=== PATIENT | female | born 1965 | race Caucasian/White ===

== ENCOUNTER 2017-06-25 09:32 | Inpatient (IN) | payer OTHER ==
[2017-06-25 10:10] VITALS: BMI 33.9
--- NOTE | 2017-06-25 13:41 | HP ---
CIWA Score - CIWA Score Nausea/Vomitin-No Nausea/No Vomiting Muscle Tremors: 4-Moderate,w/Arms Extend Anxiety: 4-Mod. Anxious/Guarded Agitation: 4-Moderately Restless Paroxysmal Sweats: 1-Minimal Palms Moist Orientation: 0-Oriented Tacttile Disturbances: 3-Moderate Itch/Numb/Burn Auditory Disturbances: 0-None Visual Disturbances: 0-None Headache: 1-Very Mild CIWA-Ar Total Score: 17 Admission ROS [facility] Chief Complaint: WITHDRAWAL SX FROM KLONOPIN/XANAX Allergies/Adverse Reactions: Allergies Allergy/AdvReac Type Severity Reaction Status Date / Time fentanyl Allergy Severe Swelling Verified 04/07/15 16:39 ketorolac tromethamine Allergy Severe Hives Verified 06/25/17 12:17 [From Toradol] morphine Allergy Severe Swelling Verified 04/07/15 16:39 penicillin G Allergy Severe Hives Verified 04/07/15 16:39 tramadol Allergy Severe Hives Verified 06/25/17 12:17 History of Present Illness: 52 Y/O H/FEMALE WITH A HX OF KLONOPIN AND XANAX DEPENDENCE SEEKING DETOX TX. PT IS ON S.T.A.R.T.-MMTP. ON METHADONE 80 MG DAILY. LAST DOSED TODAY. Exam Limitations: No Limitations - Ebola screening Have you traveled outside of the country in the last 21 days: No Have you had contact with anyone from an Ebola affected area: No Have you been sick,other than usual withdrawal symptoms: No Do you have a fever: No - Review of Systems Constitutional: Chills, Loss of Appetite, Night Sweats, Changes in sleep (TAKES AMBIEN), Unintentional Wgt. Loss EENT: reports: Blurred Vision, Tearing, Nose Congestion, Dental Problems (UPPER DENTURE) Respiratory: reports: Shortness of Breath (HX ASTHMA), Wheezing Cardiac: reports: Lightheadedness GI: reports: Constipated, Diarrhea, Nausea, Poor Appetite, Poor Fluid Intake, Vomiting, Abdominal cramping : reports: Burning, Dysuria, Frequency, Incontinence Musculoskeletal: reports: Back Pain, Joint Pain, Muscle Pain, Other (HX SCOLIOSIS SPINE) Integumentary: reports: Bruising, Rash (LEFT LEFT,BACK AND SHOULDER ON/OFF FOR PAST 4 YRS. BIOPSY DONE BUT RECENT TEST RESULT PENDING. ON BENADRYL 50 MG TID PRN.) Neuro: reports: Headache, Seizure ( "ONE TIME IN MY WHOLE LIFE IN 04/10/17"-- HOSPITALIZED X 7 DAYS AT [facility]) Endocrine: reports: No Symptoms Reported Hematology: reports: Anemia ([place] ) Psychiatric: reports: Orientated x3, Anxious, Depressed Other Systems: Reviewed and Negative Patient History - Patient Medical History Hx Anemia: Yes (IN ) Hx Asthma: Yes (Pt is on MDI) Hx Chronic Obstructive Pulmonary Disease (COPD): No Hx Cancer: No Hx Cardiac Disorders: No Hx Congestive Heart Failure: No Hx Hypertension: No Hx Hypercholesterolemia: Yes (RECENTLY ON H/P-NO MED(TO F/U WITH PMD SOON)) Hx Pacemaker: No HX Cerebrovascular Accident: No Hx Seizures: Yes (drug related seizures last 03/30 no meds.) Hx Dementia: No Hx Diabetes: No Hx Gastrointestinal Disorders: No Hx Liver Disease: No Hx Genitourinary Disorders: No Hx Sexually Transmitted Disorders: No Hx Renal Disease (ESRD): No Hx Thyroid Disease: No Hx Human Immunodeficiency Virus (HIV): No (NEGATIVE HX) Hx Hepatitis C: No Hx Depression: Yes (ON MED) Hx Suicide Attempt: Yes (Pt tried to overdose 10 yrs ago;DENIES CURRENT S/I .) Hx Bipolar Disorder: No Hx Schizophrenia: No - Patient Surgical History Past Surgical History: Yes Hx Neurologic Surgery: No Hx Cataract Extraction: No Hx Cardiac Surgery: No Hx Lung Surgery: No Hx Breast Surgery: No Hx Breast Biopsy: No Hx Abdominal Surgery: No Hx Appendectomy: No Hx Cholecystectomy: No Hx Genitourinary Surgery: No Hx Section: Yes (x1) Hx Orthopedic Surgery: Yes (scolosis sx age 13) Other Surgical History: Sx R hip at age 13 yrs Anesthesia Reaction: No - PPD History Previous Implant?: Yes Documented Results: Negative w/o proof Implanted On Prior R Admission?: Yes Date: 04/09/15 PPD to be Administered?: Yes - Reproductive History Patient is a Female of Child Bearing Age (11 -55 yrs old): Yes LMP comment: 10 YRS AGO Patient : No - Smoking Cessation Smoking history: Current every day smoker Have you smoked in the past 12 months: Yes Aproximately how many cigarettes per day: 10 Hx Chewing Tobacco Use: No Initiated information on smoking cessation: Yes 'Breaking Loose' booklet given: 06/25/17 - Substance & Tx. History Hx Alcohol Use: No (DENIES) Hx Substance Use: Yes (KLONOPIN/XANAX) Substance Use Type: Tranquilizers Hx Substance Use Treatment: Yes - Substances Abused KLONOPIN/XANAX Route: Oral Frequency: Daily Amount used: 4MG Age of first use: 43 Date of Last Use: 06/24/17 Family Disease History - Family Disease History Family Disease History: CA: Mother (breast CA) Admission Physical Exam S - Vital Signs Vital Signs: Vital Signs - 24 hr 06/25/17 10:05 Temperature 97.4 F L Pulse Rate 76 Respiratory 20 Rate Blood Pressure 119/75 - Physical General Appearance: Yes: Moderate Distress, Irritable, Anxious HEENTM: Yes: EOMI, Normocephalic, ALEXANDRO, Pharynx Normal Respiratory: Yes: Chest Non-Tender, Lungs Clear, No Respiratory Distress Neck: Yes: Supple, Trachea in good position Breast: Yes: Breast Exam Deferred Cardiology: Yes: Regular Rhythm, Regular Rate, S1, S2 Abdominal: Yes: Normal Bowel Sounds, Non Tender, Protuberent Genitourinary: Yes: Other Back: Yes: Within Normal Limits Musculoskeletal: Yes: full range of Motion, Gait Steady Extremities: Yes: Normal Range of Motion, Non-Tender Neurological: Yes: electronic publishing specialist II-XII NML intact, Fully Oriented, Alert, Motor Strength 5/5 Integumentary: Yes: Dry, Warm, Rash (LEFT LOWER LEG DRY RASH WITH ESCORIATIONS) Lymphatic: Yes: Within Normal Limits - Diagnostic (1) Asthma Status: Chronic Qualifiers: Asthma severity: mild Asthma persistence: intermittent Asthma complication type: uncomplicated Qualified Code(s): J45.20 - Mild intermittent asthma, uncomplicated (2) Methadone maintenance therapy patient Status: Chronic Comment: 180mg last dose today. pending verification. (3) Nicotine dependence Status: Acute Qualifiers: Nicotine product type: cigarettes Substance use status: uncomplicated Qualified Code(s): F17.210 - Nicotine dependence, cigarettes, uncomplicated (4) Skin rash Status: Chronic (5) Sedative, hypnotic or anxiolytic dependence with withdrawal, uncomplicated Status: Acute (6) Drug withdrawal seizure Status: Suspected Qualifiers: Complication of substance-induced condition: with unspecified complication Qualified Code(s): F19.239 - Other psychoactive substance dependence with withdrawal, unspecified; R56.9 - Unspecified convulsions; R56.9 - Unspecified convulsions; R56.9 - Unspecified convulsions; R56.9 - Unspecified convulsions Cleared for Admission [facility] - Detox or Rehab [facility] Level of Care: Medically Managed Detox Regimen/Protocol: Valium [facility] Breath Alcohol Content Breath Alcohol Content: 0 Urine Pregancy Test - Result Urine Test Results: Negative- NO Line Present Urine Drug Screen - Results Drug Screen Negative: No Urine Drug Screen Results: BZO-Benzodiazepines, MTD-Methadone, TCA-Tricyclic Antidepress
[2017-06-25] MEDS ORDERED: LOPERAMIDE HCL 2 MG CAPSULE PO PRN (13:58)
[2017-06-25] MEDS ORDERED: P-EPHED 60MG/TRIPROLIDI 2.5MG TABLET PO PRN (13:58)
[2017-06-25] MEDS ORDERED: NICOTINE POLACRILEX 2 MG GUM BUC PRN (13:58)
[2017-06-25] MEDS ORDERED: MAGNESIUM CITRATE 300 ML BOTTLE PO PRN (13:58)
[2017-06-25] MEDS ORDERED: MAGNESIUM HYDROX 2400MG/30ML ORAL SUSPENSION 30 ML CUP PO PRN (13:58)
[2017-06-25] MEDS ORDERED: MAG HYDROX/AL HYDROX/SIMETH 30 ML UNIT-DOSE CUP PO PRN (13:58)
[2017-06-25] MEDS ORDERED: MENTHOL/PHENOL 1 EACH UD MM PRN (13:58)
[2017-06-25] MEDS ORDERED: guaiFENesin/D-METHORPHAN HB 10 ML UNIT-DOSE CUPS PO PRN (13:58)
[2017-06-25] MEDS ORDERED: diazePAM 5 MG TABLET PO ONE (15:27)
[2017-06-25] MEDS: NICOTINE 14 MG/24 HOURS TOPICAL PATCH TD SCH (16:53)
[2017-06-25 17:19] LABS: URINE APPEARANCE SLCLOUDY; URINE BILIRUBIN NEGATIVE (NEGATIVE); URINE BLOOD NEGATIVE (NEGATIVE); URINE COLOR YELLOW; URINE GLUCOSE (UA) NEGATIVE (NEGATIVE); URINE KETONE NEGATIVE (NEGATIVE); URINE LEUK ESTERASE NEGATIVE (NEGATIVE); URINE NITRITE POSITIVE (NEGATIVE); URINE PROTEIN NEGATIVE (NEGATIVE); URINE UROBILINOGEN NEGATIVE mg/dL (0.2-1.0)
[2017-06-25 17:33] LABS: MCH 30.9 pg (25.7-33.7); MCHC 33.5 g/dl (32.0-36.0); MEAN CELL VOLUME 92.1 fl (80-96); MEAN PLT VOLUME 8.5 fl (7.5-11.1); PLATELET COUNT 291 K/MM3 (134-434); RDW 14.4 % (11.6-15.6)
[2017-06-25 17:44] LABS: URINE MUCUS RARE; URINE RBC <1 /hpf (0-3); URINE WBC 1 /hpf (3-5)
[2017-06-25 17:53] LABS: CALCIUM 8.9 mg/dL (8.5-10.1)
[2017-06-25 17:58] LABS: ALBUMIN 3.7 g/dl (3.4-5.0); ALK PHOS 83 U/L (45-117); ANION GAP 8 (8-16); BILIRUBIN,TOTAL 0.2 mg/dL (0.2-1.0); CO2 28 mmol/L (21-32); CREATININE 0.9 mg/dL (0.55-1.02); GLUCOSE,RANDOM 73 mg/dL (74-106); SGOT/AST 13 U/L (15-37); SGPT/ALT 17 U/L (12-78); TOT PROT 7.3 g/dl (6.4-8.2)
[2017-06-25] MEDS: TRIAMCINOLONE ACET 0.025% OINTMENT 15 GM TUBE TP SCH ×2 (18:11→22:35)
[2017-06-25] MEDS: diphenhydrAMINE HCL 25 MG CAPSULE (FP) PO SCH ×2 (18:12→22:31)
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
[2017-06-25 20:03] LABS: URINE LEUK ESTERASE Negative (NEGATIVE)
[2017-06-25] MEDS ORDERED: diphenhydrAMINE HCL 25 MG CAPSULE (FP) PO SCH (22:00)
[2017-06-25] MEDS: diazePAM 5 MG TABLET PO SCH (22:31)
[2017-06-25] MEDS: ZOLPIDEM TARTRATE 5 MG TABLET PO PRN (22:32)
[2017-06-25] MEDS: THIAMINE HCL 100 MG TABLET (FP) PO SCH (22:33)
[2017-06-26] MEDS ORDERED: diphenhydrAMINE HCL 25 MG CAPSULE (FP) PO ONE (02:40)
[2017-06-26] MEDS: diazePAM 5 MG TABLET PO SCH ×3 (05:09→22:18)
[2017-06-26] MEDS: diphenhydrAMINE HCL 25 MG CAPSULE (FP) PO SCH ×3 (05:09→22:18)
--- NOTE | 2017-06-26 09:34 | PN ---
[facility] CIWA - CIWA Score Nausea/Vomitin Muscle Tremors: 3 Anxiety: 3 Agitation: 3 Paroxysmal Sweats: 3 Orientation: 0-Oriented Tacttile Disturbances: 0-None Auditory Disturbances: 0-None Visual Disturbances: 0-None Headache: 0-None Present CIWA-Ar Total Score: 15 [facility] Progress Note (SOAP) Subjective: nasuea, sweats, interupetd sleep, anxiety, tremors, requesting methadone dose 80mg to be given at this time, feeling uncomfortable. Objective: 06/26/17 09:33 Vital Signs - 8 hr 06/26/17 06/26/17 03:30 06:21 Temperature 97.4 F L Pulse Rate 69 Respiratory 18 18 Rate Blood Pressure 111/76 Laboratory Tests 06/25/17 06/25/17 06/25/17 14:00 14:00 14:00 WBC 5.0 RBC 3.55 L Hgb 11.0 Hct 32.7 MCV 92.1 MCH 30.9 MCHC 33.5 RDW 14.4 Plt Count 291 MPV 8.5 Sodium 140 Potassium 4.2 Chloride 104 Carbon Dioxide 28 Anion Gap 8 BUN 16 Creatinine 0.9 D Creat Clearance w eGFR > 60 Random Glucose 73 L D Calcium 8.9 Total Bilirubin 0.2 AST 13 L ALT 17 Alkaline Phosphatase 83 Total Protein 7.3 Albumin 3.7 Urine Color Urine Appearance Urine pH Ur Specific [place] Urine Protein Urine Glucose (UA) Urine Ketones Urine Blood Urine Nitrite Urine Bilirubin Urine Urobilinogen Ur Leukocyte Esterase Urine WBC (Auto) Urine RBC (Auto) Ur Epithelial Cells Urine Mucus RPR Titer Nonreactive 06/25/17 15:15 WBC RBC Hgb Hct MCV MCH MCHC RDW Plt Count MPV Sodium Potassium Chloride Carbon Dioxide Anion Gap BUN Creatinine Creat Clearance w eGFR Random Glucose Calcium Total Bilirubin AST ALT Alkaline Phosphatase Total Protein Albumin Urine Color Yellow Urine Appearance Slcloudy Urine pH 6.0 Ur Specific [place] 1.012 Urine Protein Negative Urine Glucose (UA) Negative Urine Ketones Negative Urine Blood Negative Urine Nitrite Positive Urine Bilirubin Negative Urine Urobilinogen Negative Ur Leukocyte Esterase Negative Urine WBC (Auto) 1 Urine RBC (Auto) <1 Ur Epithelial Cells Rare Urine Mucus Rare RPR Titer Assessment: 06/26/17 09:33 withdrawal sx - cont detox, fluids, encourage ambualtion, methadone dose verified 80mg ldm 06.25.2017 dose ordred to be given now.
[2017-06-26] MEDS: PRENATAL VITAMINS W/ FOLIC ACID TABLET (FP) PO SCH (10:23)
[2017-06-26] MEDS: METHADONE HCL 40 MG DISPERSABLE TABLET PO SCH (10:23)
[2017-06-26] MEDS: NICOTINE 14 MG/24 HOURS TOPICAL PATCH TD SCH (10:24)
[2017-06-26] MEDS: diazePAM 5 MG TABLET PO PRN ×2 (10:24→17:51)
[2017-06-26] MEDS: TRIAMCINOLONE ACET 0.025% OINTMENT 15 GM TUBE TP SCH ×4 (10:24→22:19)
--- NOTE | 2017-06-26 11:40 | EKG ---
Test Reason : Blood Pressure : / mmHG Vent. Rate : 067 BPM Atrial Rate : 067 BPM P-R Int : 136 ms QRS Dur : 090 ms QT Int : 404 ms P-R-T Axes : 010 015 011 degrees QTc Int : 426 ms NORMAL SINUS RHYTHM NONSPECIFIC T WAVE ABNORMALITY ABNORMAL ECG NO PREVIOUS ECGS AVAILABLE Confirmed by ALBARO DONNELLY, YOHAN ([id number]) on 06/26/2017 11:40:24 AM Referred By: Confirmed By:YOHAN IRVIN MD
[2017-06-26] MEDS: ACETAMINOPHEN 325 MG TABLET (FP) PO PRN (16:58)
[2017-06-26] MEDS: THIAMINE HCL 100 MG TABLET (FP) PO SCH (22:18)
[2017-06-26] MEDS: ZOLPIDEM TARTRATE 5 MG TABLET PO PRN (22:20)
[2017-06-27] MEDS: diazePAM 5 MG TABLET PO PRN ×3 (02:55→18:17)
[2017-06-27] MEDS: METHADONE HCL 40 MG DISPERSABLE TABLET PO SCH (05:16)
[2017-06-27] MEDS: diphenhydrAMINE HCL 25 MG CAPSULE (FP) PO SCH ×3 (05:16→23:09)
[2017-06-27] MEDS ORDERED: diphenhydrAMINE HCL 50 MG CAPSULE PO PRN (10:04)
--- NOTE | 2017-06-27 10:10 | PN ---
S CIWA - CIWA Score Nausea/Vomitin Muscle Tremors: 3 Anxiety: 3 Agitation: 3 Paroxysmal Sweats: 1-Minimal Palms Moist Orientation: 0-Oriented Tacttile Disturbances: 1-Very Mild Itch/Numbness Auditory Disturbances: 1-Very Mild Visual Disturbances: 1-Very Mild Sensitivity Headache: 2-Mild CIWA-Ar Total Score: 18 [facility] Progress Note (SOAP) Subjective: alert,irritable,anxious,interrupted sleep,pain in the body and back,tremor, vaginal discharge itching Objective: 06/27/17 10:07 Vital Signs Temperature 98.1 F 06/27/17 10:04 Pulse Rate 79 06/27/17 10:04 Respiratory Rate 18 06/27/17 10:04 Blood Pressure 115/73 06/27/17 10:04 O2 Sat by Pulse Oximetry (%) Laboratory Last Values WBC 5.0 K/mm3 (4.0-10.0) 06/25/17 14:00 RBC 3.55 M/mm3 (3.60-5.2) L 06/25/17 14:00 Hgb 11.0 GM/dL (10.7-15.3) 06/25/17 14:00 Hct 32.7 % (32.4-45.2) 06/25/17 14:00 MCV 92.1 fl (80-96) 06/25/17 14:00 MCH 30.9 pg (25.7-33.7) 06/25/17 14:00 MCHC 33.5 g/dl (32.0-36.0) 06/25/17 14:00 RDW 14.4 % (11.6-15.6) 06/25/17 14:00 Plt Count 291 K/MM3 (134-434) 06/25/17 14:00 MPV 8.5 fl (7.5-11.1) 06/25/17 14:00 Sodium 140 mmol/L (136-145) 06/25/17 14:00 Potassium 4.2 mmol/L (3.5-5.1) 06/25/17 14:00 Chloride 104 mmol/L (98-107) 06/25/17 14:00 Carbon Dioxide 28 mmol/L (21-32) 06/25/17 14:00 Anion Gap 8 (8-16) 06/25/17 14:00 BUN 16 mg/dL (7-18) 06/25/17 14:00 Creatinine 0.9 mg/dL (0.55-1.02) D 06/25/17 14:00 Creat Clearance w eGFR > 60 (>60) 06/25/17 14:00 Random Glucose 73 mg/dL (74-106) L D 06/25/17 14:00 Calcium 8.9 mg/dL (8.5-10.1) 06/25/17 14:00 Total Bilirubin 0.2 mg/dL (0.2-1.0) 06/25/17 14:00 AST 13 U/L (15-37) L 06/25/17 14:00 ALT 17 U/L (12-78) 06/25/17 14:00 Alkaline Phosphatase 83 U/L (45-117) 06/25/17 14:00 Total Protein 7.3 g/dl (6.4-8.2) 06/25/17 14:00 Albumin 3.7 g/dl (3.4-5.0) 06/25/17 14:00 Urine Color Yellow 06/25/17 15:15 Urine Appearance Slcloudy 06/25/17 15:15 Urine pH 6.0 (5.0-8.0) 06/25/17 15:15 Ur Specific [place] 1.012 (1.001-1.035) 06/25/17 15:15 Urine Protein Negative (NEGATIVE) 06/25/17 15:15 Urine Glucose (UA) Negative (NEGATIVE) 06/25/17 15:15 Urine Ketones Negative (NEGATIVE) 06/25/17 15:15 Urine Blood Negative (NEGATIVE) 06/25/17 15:15 Urine Nitrite Positive (NEGATIVE) 06/25/17 15:15 Urine Bilirubin Negative (NEGATIVE) 06/25/17 15:15 Urine Urobilinogen Negative mg/dL (0.2-1.0) 06/25/17 15:15 Ur Leukocyte Esterase Negative (NEGATIVE) 06/25/17 15:15 Urine WBC (Auto) 1 /hpf (3-5) 06/25/17 15:15 Urine RBC (Auto) <1 /hpf (0-3) 06/25/17 15:15 Ur Epithelial Cells Rare /HPF (FEW) 06/25/17 15:15 Urine Mucus Rare 06/25/17 15:15 RPR Titer Nonreactive (NONREACTIVE) 06/25/17 14:00 Assessment: 06/27/17 10:08 withdrawal symptom Plan: continue detox,cane for ambulation aid,diflucan 100 mgs po one dose
[2017-06-27] MEDS: diazePAM 5 MG TABLET PO SCH ×2 (10:16→22:17)
[2017-06-27] MEDS: PRENATAL VITAMINS W/ FOLIC ACID TABLET (FP) PO SCH (10:16)
[2017-06-27] MEDS: NICOTINE 14 MG/24 HOURS TOPICAL PATCH TD SCH (10:17)
[2017-06-27] MEDS: TRIAMCINOLONE ACET 0.025% OINTMENT 15 GM TUBE TP SCH ×4 (10:17→23:09)
[2017-06-27] MEDS: FLUCONAZOLE 100 MG TABLET (UD) PO SCH (11:26)
[2017-06-27] MEDS: THIAMINE HCL 100 MG TABLET (FP) PO SCH (22:17)
[2017-06-27] MEDS: ZOLPIDEM TARTRATE 5 MG TABLET PO PRN (22:19)
[2017-06-28] MEDS: diazePAM 5 MG TABLET PO PRN ×2 (00:28→05:40)
[2017-06-28] MEDS: ACETAMINOPHEN 325 MG TABLET (FP) PO PRN ×2 (01:54→11:33)
[2017-06-28] MEDS: diphenhydrAMINE HCL 25 MG CAPSULE (FP) PO SCH ×2 (05:38→14:13)
[2017-06-28] MEDS: METHADONE HCL 40 MG DISPERSABLE TABLET PO SCH (05:38)
[2017-06-28] MEDS: PRENATAL VITAMINS W/ FOLIC ACID TABLET (FP) PO SCH (10:23)
[2017-06-28] MEDS: NICOTINE 14 MG/24 HOURS TOPICAL PATCH TD SCH (10:23)
[2017-06-28] MEDS: diazePAM 5 MG TABLET PO SCH ×2 (10:23→22:17)
[2017-06-28] MEDS: TRIAMCINOLONE ACET 0.025% OINTMENT 15 GM TUBE TP SCH ×4 (10:24→22:17)
[2017-06-28] MEDS: FLUCONAZOLE 100 MG TABLET (UD) PO SCH (10:25)
--- NOTE | 2017-06-28 11:10 | PN ---
S Progress Note (SOAP) Subjective: alert,irritable,anxious,interrupted sleep, Objective: 06/28/17 11:09 Vital Signs Temperature 98.2 F 06/28/17 09:45 Pulse Rate 74 06/28/17 09:45 Respiratory Rate 18 06/28/17 09:45 Blood Pressure 109/65 06/28/17 09:45 O2 Sat by Pulse Oximetry (%) Assessment: 06/28/17 11:09 withdrawal symptom Plan: continue detox,discharge in am
[2017-06-28] MEDS ORDERED: hydrOXYzine PAMOATE 25 MG CAPSULE (FP) PO ONE (18:22)
[2017-06-28] MEDS: ZOLPIDEM TARTRATE 5 MG TABLET PO PRN (22:17)
[2017-06-28] MEDS: THIAMINE HCL 100 MG TABLET (FP) PO SCH (22:17)
[2017-06-29] MEDS: METHADONE HCL 40 MG DISPERSABLE TABLET PO SCH (05:16)
[2017-06-29 06:08] VITALS: BP 109/68; PULSE 66; TEMP 97.7
[2017-06-29] MEDS: ACETAMINOPHEN 325 MG TABLET (FP) PO PRN (07:00)
[2017-06-29] MEDS: TRIAMCINOLONE ACET 0.025% OINTMENT 15 GM TUBE TP SCH (09:05)
[2017-06-29] MEDS: PRENATAL VITAMINS W/ FOLIC ACID TABLET (FP) PO SCH (09:06)
[2017-06-29] MEDS: NICOTINE 14 MG/24 HOURS TOPICAL PATCH TD SCH (09:07)
--- NOTE | 2017-06-29 09:17 | DS ---
<Jayla Cannon - Last Filed: 06/30/17 15:43> S Detox Discharge Summary Admission Date: 06/25/17 Discharge Date: 06/29/17 - History Pertinent Past History: Opioid dependence with uncomplicated dependence Asthma - Physical Exam Results Vital Signs: Vital Signs Temperature 97.7 F 06/29/17 06:00 Pulse Rate 66 06/29/17 06:00 Respiratory Rate 18 06/29/17 06:00 Blood Pressure 109/68 06/29/17 06:00 O2 Sat by Pulse Oximetry (%) Pertinent Admission Physical Exam Findings: withdrawal sx Vital Signs Temperature 97.7 F 06/29/17 06:00 Pulse Rate 66 06/29/17 06:00 Respiratory Rate 18 06/29/17 06:00 Blood Pressure 109/68 06/29/17 06:00 O2 Sat by Pulse Oximetry (%) Laboratory Last Values WBC 5.0 K/mm3 (4.0-10.0) 06/25/17 14:00 RBC 3.55 M/mm3 (3.60-5.2) L 06/25/17 14:00 Hgb 11.0 GM/dL (10.7-15.3) 06/25/17 14:00 Hct 32.7 % (32.4-45.2) 06/25/17 14:00 MCV 92.1 fl (80-96) 06/25/17 14:00 MCH 30.9 pg (25.7-33.7) 06/25/17 14:00 MCHC 33.5 g/dl (32.0-36.0) 06/25/17 14:00 RDW 14.4 % (11.6-15.6) 06/25/17 14:00 Plt Count 291 K/MM3 (134-434) 06/25/17 14:00 MPV 8.5 fl (7.5-11.1) 06/25/17 14:00 Sodium 140 mmol/L (136-145) 06/25/17 14:00 Potassium 4.2 mmol/L (3.5-5.1) 06/25/17 14:00 Chloride 104 mmol/L (98-107) 06/25/17 14:00 Carbon Dioxide 28 mmol/L (21-32) 06/25/17 14:00 Anion Gap 8 (8-16) 06/25/17 14:00 BUN 16 mg/dL (7-18) 06/25/17 14:00 Creatinine 0.9 mg/dL (0.55-1.02) D 06/25/17 14:00 Creat Clearance w eGFR > 60 (>60) 06/25/17 14:00 Random Glucose 73 mg/dL (74-106) L D 06/25/17 14:00 Calcium 8.9 mg/dL (8.5-10.1) 06/25/17 14:00 Total Bilirubin 0.2 mg/dL (0.2-1.0) 06/25/17 14:00 AST 13 U/L (15-37) L 06/25/17 14:00 ALT 17 U/L (12-78) 06/25/17 14:00 Alkaline Phosphatase 83 U/L (45-117) 06/25/17 14:00 Total Protein 7.3 g/dl (6.4-8.2) 06/25/17 14:00 Albumin 3.7 g/dl (3.4-5.0) 06/25/17 14:00 Urine Color Yellow 06/25/17 15:15 Urine Appearance Slcloudy 06/25/17 15:15 Urine pH 6.0 (5.0-8.0) 06/25/17 15:15 Ur Specific [place] 1.012 (1.001-1.035) 06/25/17 15:15 Urine Protein Negative (NEGATIVE) 06/25/17 15:15 Urine Glucose (UA) Negative (NEGATIVE) 06/25/17 15:15 Urine Ketones Negative (NEGATIVE) 06/25/17 15:15 Urine Blood Negative (NEGATIVE) 06/25/17 15:15 Urine Nitrite Positive (NEGATIVE) 06/25/17 15:15 Urine Bilirubin Negative (NEGATIVE) 06/25/17 15:15 Urine Urobilinogen Negative mg/dL (0.2-1.0) 06/25/17 15:15 Ur Leukocyte Esterase Negative (NEGATIVE) 06/25/17 15:15 Urine WBC (Auto) 1 /hpf (3-5) 06/25/17 15:15 Urine RBC (Auto) <1 /hpf (0-3) 06/25/17 15:15 Ur Epithelial Cells Rare /HPF (FEW) 06/25/17 15:15 Urine Mucus Rare 06/25/17 15:15 RPR Titer Nonreactive (NONREACTIVE) 06/25/17 14:00 Labs noted - Treatment Hospital Course: Detox Protocol Followed, Detoxed Safely, Responded well, Discharged Condition Good Patient has Accepted a Rehab Referral to: [facility] - Medication Discharge Medications: Ambulatory Orders Bupropion HCl [Wellbutrin Xl -] 300 mg PO DAILY #30 tab.sr.24h 04/08/15 Mirtazapine [Remeron -] 30 mg PO HS #30 tablet 04/08/15 Risperidone [Risperdal -] 3 mg PO HS 06/25/17 Zolpidem Tartrate [Ambien] 10 mg PO HS 06/25/17 - Diagnosis (1) Nicotine dependence Status: Acute QualifierTitle: Nicotine product type: cigarettes Substance use status: uncomplicated Qualified Code(s): F17.210 - Nicotine dependence, cigarettes, uncomplicated (2) Sedative, hypnotic or anxiolytic dependence with withdrawal, uncomplicated Status: Acute - AMA Did Patient Leave Against Medical Advice: No <Murtaza Bejarano - Last Filed: 07/01/17 09:32> [facility] Detox Discharge Summary Admission Date: 06/25/17 - History Present History: Cocaine Dependence, Sedative Dependence, MMTP Pertinent Past History: anxiety, depression, insomnia, nicotine dependence - Physical Exam Results Vital Signs: Vital Signs Temperature 97.7 F 06/29/17 06:00 Pulse Rate 66 06/29/17 06:00 Respiratory Rate 18 06/29/17 06:00 Blood Pressure 109/68 06/29/17 06:00 O2 Sat by Pulse Oximetry (%) - Diagnosis (1) Nicotine dependence Status: Acute Qualifiers: Nicotine product type: cigarettes Substance use status: uncomplicated Qualified Code(s): F17.210 - Nicotine dependence, cigarettes, uncomplicated (2) Sedative, hypnotic or anxiolytic dependence with withdrawal, uncomplicated Status: Acute (3) Asthma Status: Chronic Qualifiers: Asthma severity: mild Asthma persistence: intermittent Asthma complication type: uncomplicated Qualified Code(s): J45.20 - Mild intermittent asthma, uncomplicated (4) Cocaine dependence Status: Chronic (5) Opioid dependence on agonist therapy Status: Chronic (6) PTSD (post-traumatic stress disorder) Status: Chronic (7) Substance induced mood disorder Status: Suspected - AMA Did Patient Leave Against Medical Advice: No
[2017-06-29] MEDS ORDERED: diazePAM 5 MG TABLET PO SCH (10:00)
--- NOTE | 2017-07-01 01:58 | EKG ---
Test Reason : Blood Pressure : / mmHG Vent. Rate : 063 BPM Atrial Rate : 063 BPM P-R Int : 136 ms QRS Dur : 094 ms QT Int : 442 ms P-R-T Axes : 013 011 003 degrees QTc Int : 452 ms NORMAL SINUS RHYTHM NONSPECIFIC T WAVE ABNORMALITY ABNORMAL ECG WHEN COMPARED WITH ECG OF 25-JUN-2017 16:56, NO SIGNIFICANT CHANGE WAS FOUND Confirmed by PITER PORTILLO MD ([id number]) on 07/01/2017 1:58:08 AM Referred By: Confirmed By:PITER PORTILLO MD
== END 2017-06-29 09:23 | disposition home or self-care (01) | DRG 773 ==
LOC: YASAS 09:32 → Y6N 15:14
PROVIDERS: ADMIT Internal Medicine; ATTEND Internal Medicine
PROC: HZ2ZZZZ Detoxification Services for Substance Abuse Treatment (ICD-10-PCS; principal; 2017-06-25)
DX: F11.23 Opioid dependence with withdrawal (principal); F13.230 Sedative, hypnotic or anxiolytic dependence with withdrawal, uncomplicated; F14.20 Cocaine dependence, uncomplicated; F17.210 Nicotine dependence, cigarettes, uncomplicated; F43.10 Post-traumatic stress disorder, unspecified; F19.24 Other psychoactive substance dependence with psychoactive substance-induced mood disorder; J45.909 Unspecified asthma, uncomplicated
CPT/HCPCS: 36415; 80053; 81003; 81015; 85027; 86593; 93005; 93010